=== PATIENT | male | born 1970 | race Caucasian/White ===

== ENCOUNTER 2017-07-29 05:53 | Emergency (ER) | payer MEDICAID ==
[2017-07-29 06:00] VITALS: BP 146/100
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
[2017-07-29] MEDS ORDERED: CHLORDIAZEPOXIDE 25MG PREPK#6 BTL TAKEHOME ONE (06:05)
== END 2017-07-29 06:19 | disposition home or self-care (01) ==
LOC: EDUNIT#
DX: F10.920 Alcohol use, unspecified with intoxication, uncomplicated (principal); I10 Essential (primary) hypertension; F17.200 Nicotine dependence, unspecified, uncomplicated

== ENCOUNTER 2017-07-30 18:01 | Emergency (ER) | payer MEDICAID ==
[2017-07-30] MEDS ORDERED: NS 1,000 ML IV ONE (18:56)
--- NOTE | 2017-07-30 18:56 | EDPHY ---
H & P Smoking Status: Current every day smoker Time Seen by Provider: 07/30/17 18:05 HPI/ROS: CHIEF COMPLAINT: Alcohol abuse HISTORY OF PRESENT ILLNESS: The patient is a 46-year-old male with a history of drug and alcohol abuse. The patient called police because he was drinking heavily. The patient states that he needed help because he drank a large amount of alcohol. He denies any drug use although he was attempting to buy cocaine prior to his ED visit yesterday. He has no recent trauma. The patient was without complaint at this time. No SI. REVIEW OF SYSTEMS: My complete review of systems is negative except as mentioned in the HPI. ( Mary Ramirez) Past Medical/Surgical History: Includes polysubstance abuse, alcoholism Past surgical history: Denies Social history: The patient drinks alcohol daily. (Mary Ramirez) Physical Exam: Vitals noted. Heart rate 125 GENERAL: Intoxicated appearing. No acute distress, alert. HEENT: Eyes normal to inspection, normal pharynx, no signs of dehydration. No trauma NECK: No thyromegaly, no lymphadenopathy, supple. RESPIRATORY: Clear to auscultation bilaterally, no rales, rhonchi or wheezing. CVS: Regular rate and rhythm, no rubs, murmurs, or gallops. ABDOMEN: Soft, nontender, nondistended, no organomegaly. BACK: Normal to inspection, no CVA tenderness. SKIN: Normal color, no rash, warm, dry. No pallor. EXTREMITIES: No pedal edema, no calf tenderness, no Homans sign or cords, no joint swelling. NEURO/PSYCH: Intoxicated appearing. Moves all extremities. No obvious cranial nerve deficit. (Mary Ramirez S) Constitutional: Initial Vital Signs Temperature (C) 36.5 C 07/30/17 18:03 Heart Rate 125 H 07/30/17 18:03 Respiratory Rate 18 07/30/17 18:03 Blood Pressure 139/102 H 07/30/17 18:03 O2 Sat (%) 96 07/30/17 18:03 O2 Delivery Mode Room Air Allergies/Adverse Reactions: No Known Allergies Allergy (Verified 12/28/15 07:55) Home Medications: Medication Instructions Recorded Losartan Potassium 07/16/15 Omeprazole 07/16/15 Sertraline HCl [Zoloft 50mg (*)] 50 mg PO DAILY 12/28/15 Medical Decision Making ED Course/Re-evaluation: In the emergency department I met the patient on arrival. I reviewed the patient's medical record from yesterday. Please are with the patient when he came to the emergency department. They state he is not welcome to go to [facility]. Patient's CBC is normal. Patient's chemistry panel is notable for an elevated sodium of 150. Creatinine is normal. Patient's alcohol is 293. Tylenol and aspirin is negative. 2000: Patient ambulated to the bathroom. 2100: Patient is signed out at change of shift to Dr. Roberson. (Mary Ramirez) Differential Diagnosis: My differential includes but is not limited to alcohol intoxication, drug abuse , closed-head injury, electrolyte abnormality, sugar abnormality, ACS, acute IA , dehydration (Mary Ramirez) Other Provider: Patient's care assumed by myself at [address] Ramirez. At 10 o'clock the patient was ambulatory with a steady gait. He is requesting medications for alcohol withdrawal but he is not tachycardic hypertensive, or tremors. He is not welcome at the [facility]. He was discharged to the streets. (Darby Roberson) - Data Points Laboratory Results: Laboratory Results 07/30/17 19:21 07/30/17 19:21 18 07/30/17 19:21 19:21 WBC 4.72 10^3/uL 10^3/uL (3.80-9.50) RBC 5.20 10^6/uL 10^6/uL (4.40-6.38) Hgb 16.8 g/dL g/dL (13.7-17.5) Hct 47.4 % % (40.0-51.0) MCV 91.2 fL fL (81.5-99.8) MCH 32.3 pg pg (27.9-34.1) MCHC 35.4 g/dL g/dL (32.4-36.7) RDW 14.3 % % (11.5-15.2) Plt Count 177 10^3/uL 10^3/uL (150-400) MPV 10.1 fL fL (8.7-11.7) Neut % (Auto) 43.6 % % (39.3-74.2) Lymph % (Auto) 42.4 % % (15.0-45.0) Forrest % (Auto) 10.8 % % (4.5-13.0) Eos % (Auto) 1.7 % % (0.6-7.6) Baso % (Auto) 1.1 % % (0.3-1.7) Nucleat RBC Rel Count 0.0 % % (0.0-0.2) Absolute Neuts (auto) 2.06 10^3/uL 10^3/uL (1.70-6.50) Absolute Lymphs (auto) 2.00 10^3/uL 10^3/uL (1.00-3.00) Absolute Monos (auto) 0.51 10^3/uL 10^3/uL (0.30-0.80) Absolute Eos (auto) 0.08 10^3/uL 10^3/uL (0.03-0.40) Absolute Basos (auto) 0.05 10^3/uL 10^3/uL (0.02-0.10) Absolute Nucleated RBC 0.00 10^3/uL 10^3/uL (0-0.01) Immature Gran % 0.4 % % (0.0-1.1) Immature Gran # 0.02 10^3/uL 10^3/uL (0.00-0.10) Sodium 150 mEq/L H mEq/L (135-145) Potassium 3.9 mEq/L mEq/L (3.3-5.0) Chloride 114 mEq/L H mEq/L (97-110) Carbon Dioxide 21 mEq/l L mEq/l (22-31) Anion Gap 15 mEq/L mEq/L (8-16) BUN 8 mg/dL mg/dL (7-23) Creatinine 1.0 mg/dL mg/dL (0.7-1.3) Estimated GFR > 60 Glucose 107 mg/dL H mg/dL (70-100) Calcium 9.1 mg/dL mg/dL (8.5-10.4) Salicylates < 1.0 mg/dL L mg/dL (2.0-20.0) Acetaminophen < 10 mcg/mL L mcg/mL (10-30) Ethyl Alcohol 293 mg/dL H mg/dL (0-10) Medications Given: Discontinued Medications Sodium Chloride (Ns) 1,000 mls @ 0 mls/hr IV ONCE ONE PRN Reason: Wide Open Stop: 07/30/17 18:57 Last Admin: 07/30/17 19:23 Dose: 1,000 mls Departure - Departure Disposition: [facility] Inpatient Acute Clinical Impression: Tachycardia Alcoholic intoxication Qualifiers: Complication of substance-induced condition: uncomplicated Qualified Code(s): F10.920 - Alcohol use, unspecified with intoxication, uncomplicated Condition: Good Instructions: Alcohol Intoxication (ED) Additional Instructions: Do not drink alcohol in excessive quantities If you are interested in treatment for alcohol withdrawal or alcohol abuse, please follow up at the [facility]. Referrals: NONE *PRIMARY CARE P,. [Primary Care Provider] - As per Instructions
[2017-07-30 19:36] LABS: PLATELET COUNT 177 10^3/uL (150-400)
[2017-07-30 23:19] VITALS: BP 122/79
== END 2017-07-30 23:19 | disposition home or self-care (01) ==
DX: F10.920 Alcohol use, unspecified with intoxication, uncomplicated (principal); R00.0 Tachycardia, unspecified
CPT/HCPCS: G0480

== ENCOUNTER 2017-07-31 01:33 | Emergency (ER) | payer MEDICAID ==
--- NOTE | 2017-07-31 02:46 | EDPHY ---
H & P Stated Complaint: ETOH BIB POLICE, UNABLE TO GO TO [facility] Time Seen by Provider: 07/31/17 01:41 HPI/ROS: HPI The patient presents with alcohol intoxication, brought in by the police and paramedics. Discharged from the emergency department just several hours ago. Apparently he walked out and drank more alcohol and then was found by police with slurring of his speech, inability to walk without assistance outside. He is transferred here for further care. Unfortunately, he is not welcome at the [facility] and was not sent there earlier today. The patient denies any overt complaints. He breathalyzer at 2:40 a.m... REVIEW OF SYSTEMS Constitutional: No fever, no chills. Eyes: No discharge. ENT: No sore throat. Cardiovascular: No chest pain, no palpitations. Respiratory: No cough, no shortness of breath. Gastrointestinal: No abdominal pain, no vomiting. Genitourinary: No hematuria. Musculoskeletal: No back pain. Skin: No rashes. Neurological: No headache. PMHx: GERD, hypertension, depression Soc Hx: Alcohol abuse, homelessness PHYSICAL General Appearance: Obviously intoxicated Eyes: Pupils equal and round no pallor or injection ENT, Mouth: Mucous membranes moist Respiratory: There are no retractions, lungs are clear to auscultation Cardiovascular: Regular rate and rhythm Gastrointestinal: Abdomen is soft and non-tender, no masses, bowel sounds normal Neurological: A&O, moves all extremities Skin: Warm and dry, no rashes Musculoskeletal: Neck is supple non tender Extremities: symmetrical, full range of motion Psychiatric: Patient is oriented X 3, there is no agitation Source: Patient, EMS, Old records Exam Limitations: Intoxication - Personal History Current Tetanus/Diphtheria Vaccine: Yes Current Tetanus Diphtheria and Acellular Pertussis (TDAP): Yes Tetanus Vaccine Date: 2014 - Medical/Surgical History Hx Asthma: No Hx Chronic Respiratory Disease: No Hx Diabetes: No Hx Cardiac Disease: No Hx Renal Disease: No Hx Cirrhosis: No Hx Alcoholism: Yes Hx HIV/AIDS: No Hx Splenectomy or Spleen Trauma: No Other PMH: HX: ETOH, depression, anxiety, GERD, hypertension - Social History Smoking Status: Current every day smoker Constitutional: Initial Vital Signs Temperature (C) 36.8 C 07/31/17 01:36 Heart Rate 93 07/31/17 01:36 Respiratory Rate 18 07/31/17 01:36 Blood Pressure 151/89 H 07/31/17 01:36 O2 Sat (%) 96 07/31/17 01:36 O2 Delivery Mode Room Air Allergies/Adverse Reactions: No Known Allergies Allergy (Verified 07/31/17 01:40) Home Medications: Medication Instructions Recorded Losartan Potassium 07/16/15 Omeprazole 07/16/15 Sertraline HCl [Zoloft 50mg (*)] 50 mg PO DAILY 12/28/15 Medical Decision Making Differential Diagnosis: 46-year-old male with 3rd ER visit in last 1 day for alcohol intoxication. He is brought in by paramedics after being discharged from the ER several hours ago for alcohol intoxication. It seems that he has left the ER, drink more alcohol, and now comes in again. Breathalyzer upon discharge was 150, now is in the 200s. We [facility] and [facility] can take him but not until the afternoon today. We will monitor him here and when he is sober he can be discharged. Departure - Departure Disposition: Home, Routine, Self-Care Clinical Impression: Alcoholic intoxication Qualifiers: Complication of substance-induced condition: with delirium Qualified Code(s): F10.921 - Alcohol use, unspecified with intoxication delirium Condition: Good Instructions: Alcohol Intoxication (ED) Referrals: NONE *PRIMARY CARE P,. [Primary Care Provider] - As per Instructions
[2017-07-31 07:08] VITALS: BP 150/77
== END 2017-07-31 07:07 | disposition home or self-care (01) ==
DX: F10.921 Alcohol use, unspecified with intoxication delirium (principal); I10 Essential (primary) hypertension; F17.200 Nicotine dependence, unspecified, uncomplicated

== ENCOUNTER 2017-07-31 16:58 | Emergency (ER) | payer MEDICAID ==
--- NOTE | 2017-07-31 18:13 | EDPHY ---
H & P Stated Complaint: ETOH Time Seen by Provider: 07/31/17 17:12 HPI/ROS: Chief complaint: Alcohol intoxication History of present illness: This is a 46 year-old male brought to the emergency department by police for alcohol intoxication. On my evaluation patient states he has been drinking alcohol today. Denies illness or injury. He has no complaints. Police brought him to the emergency department because he is not allowed to go to the [facility]. Review of systems: A 10 point review of systems was obtained and other than described above was normal - Personal History Current Tetanus Diphtheria and Acellular Pertussis (TDAP): Yes Tetanus Vaccine Date: 2014 - Medical/Surgical History Hx Asthma: No Hx Chronic Respiratory Disease: No Hx Diabetes: No Hx Cardiac Disease: No Hx Renal Disease: No Hx Cirrhosis: No Hx Alcoholism: Yes Hx HIV/AIDS: No Hx Splenectomy or Spleen Trauma: No Other PMH: HX: ETOH, depression, anxiety, GERD, hypertension - Social History Smoking Status: Current every day smoker - Physical Exam Exam: General Appearance: Alert, nontoxic. Eyes: Pupils equal and round no pallor or injection. ENT, Mouth: Mucous membranes moist. Respiratory: There are no retractions, lungs are clear to auscultation. Cardiovascular: Regular rate and rhythm. Gastrointestinal: Abdomen is soft and non tender, no masses, bowel sounds normal. Neurological: Alert and oriented x4. Strength and sensation intact and symmetrical. Skin: Warm and dry, no rashes. Musculoskeletal: Neck is supple non tender. Extremities are symmetrical, full range of motion. Psychiatric: Patient is easily conversant. No agitation. Constitutional: Initial Vital Signs Temperature (C) 37 C 07/31/17 17:02 Heart Rate 110 H 07/31/17 17:02 Respiratory Rate 18 07/31/17 17:02 Blood Pressure 156/102 H 07/31/17 17:02 O2 Sat (%) 93 07/31/17 17:02 O2 Delivery Mode Room Air Allergies/Adverse Reactions: No Known Allergies Allergy (Verified 07/31/17 01:40) Home Medications: Medication Instructions Recorded Losartan Potassium 07/16/15 Omeprazole 07/16/15 Sertraline HCl [Zoloft 50mg (*)] 50 mg PO DAILY 12/28/15 Medical Decision Making ED Course/Re-evaluation: Patient seen under the supervision of my primary supervising physician Dr. Carol Solorzano. Patient presents with the police intoxicated. He is observed for a number of hours in the emergency room. He is speaking to me well. He has no complaints. He is ambulating without difficulty. He will be discharged. Return precautions were given. Differential Diagnosis: Included but not limited to alcohol intoxication, alcohol withdrawal, polysubstance abuse Departure - Departure Disposition: Home, Routine, Self-Care Clinical Impression: Alcoholic intoxication Qualifiers: Complication of substance-induced condition: uncomplicated Qualified Code(s): F10.920 - Alcohol use, unspecified with intoxication, uncomplicated Condition: Good Instructions: Alcohol Intoxication (ED) Additional Instructions: Follow-up with the primary care doctor this week for recheck If symptoms worsen or new symptoms develop return to the emergency room for recheck Referrals: NONE *PRIMARY CARE P,. [Primary Care Provider] - As per Instructions
[2017-07-31 18:21] VITALS: BP 135/90
== END 2017-07-31 18:44 | disposition home or self-care (01) ==
DX: F10.920 Alcohol use, unspecified with intoxication, uncomplicated (principal); I10 Essential (primary) hypertension; F17.200 Nicotine dependence, unspecified, uncomplicated

== ENCOUNTER 2017-08-04 18:42 | Emergency (ER) | payer MEDICAID ==
--- NOTE | 2017-08-04 18:45 | EDPHY ---
H & P - Personal History Tetanus Vaccine Date: 2014 - Medical/Surgical History Hx Asthma: No Hx Chronic Respiratory Disease: No Hx Diabetes: No Hx Cardiac Disease: No Hx Renal Disease: No Hx Cirrhosis: No Hx Alcoholism: Yes Hx HIV/AIDS: No Hx Splenectomy or Spleen Trauma: No Other PMH: HX: ETOH, depression, anxiety, GERD, hypertension - Social History Smoking Status: Current every day smoker Time Seen by Provider: 08/04/17 18:44 Constitutional: Initial Vital Signs Temperature (C) 36.8 C 08/04/17 18:42 Heart Rate 115 H 08/04/17 18:42 Respiratory Rate 16 08/04/17 18:42 Blood Pressure 122/102 H 08/04/17 18:42 O2 Sat (%) 91 L 08/04/17 18:42 O2 Delivery Mode Room Air Allergies/Adverse Reactions: No Known Allergies Allergy (Verified 07/31/17 01:40) Home Medications: Medication Instructions Recorded Losartan Potassium 07/16/15 Omeprazole 07/16/15 Sertraline HCl [Zoloft 50mg (*)] 50 mg PO DAILY 12/28/15 Medical Decision Making ED Course/Re-evaluation: CHIEF COMPLAINT: Psychiatric evaluation HISTORY OF PRESENT ILLNESS: The patient is a 46 y/o male well-known to this ED with a history of alcoholism and suicidal ideation complaining of intoxication and suicidal ideation. He reports drinking excessively tonight and now feels like he may harm himself. He denies taking anything or doing anything to harm himself. He denies any other associated symptoms. REVIEW OF SYSTEMS: A 10 point review of systems was performed and is negative with the exception of the elements mentioned in the history of present illness. PHYSICAL EXAM: General Appearance: Alert, well hydrated, intoxicated. Head: Atraumatic without scalp tenderness or obvious injury Eyes: Pupils equal, round, reactive to light and accommodation, EOMI, no trauma , no injection. Ears: Clear bilaterally, no perforation, normal landmarks Nose: Atraumatic, no rhinorrhea, clear. Throat: There is no erythema or exudates, no lesions, normal tonsils, mucus membranes moist. Neck: Supple, nontender, no lymphadenopathy. Respiratory: No retractions, no distress, no wheezes, and no accessory muscle use. Cardiovascular: Regular rate and rhythm, no murmurs, rubs, or gallops. Gastrointestinal: Abdomen is soft, nontender, non-distended, no masses, no rebound, no guarding, no peritoneal signs. Musculoskeletal: Normal active ROM of all extremities, atraumatic. Neurological: Alert, appropriate, and interactive. Skin: No rashes, good turgor, no nodules on palpation. Past medical history: Alcohol abuse, suicidal ideation while intoxicated Past surgical history: Denies Family history: Non-contributory Social history: Transient, alcohol use, Medicaid patient DIFFERENTIAL DIAGNOSIS: The differential diagnosis for the patient's depression included but was not limited to functional and major depression, situational depression, medication side effect, drugs, and alcohol abuse. MEDICAL DECISION MAKING: Patient is in no acute distress and is hemodynamically stable. We are awaiting psychiatric team's evaluation. Patient has known history of psychiatric disorders and is here for evaluation. (Alexander Cifuentes) 0700: Patient has been sleeping. He is now sober. Has been getting Ativan. Patient on M1 hold. Suicidal ideation. Patient needs mental evaluation signed over to Dr. Markham 7am. (Markus Saunders) 700: The patient is signed out to me at change of shift by Dr. Saunders. Patient was stable during his stay. Patient was a good evaluated by Dr. Castro. She recommended the hold be lifted. Patient was given warnings prior to leaving. (Mary Ramirez) - Data Points Laboratory Results: Laboratory Results 08/04/17 18:50 08/04/17 18:50 Medications Given: Discontinued Medications Famotidine (Pepcid) 20 mg PO EDNOW ONE Stop: 08/05/17 11:32 Last Admin: 08/05/17 11:52 Dose: 20 mg Lorazepam (Ativan) 1 mg PO EDNOW ONE Stop: 08/05/17 05:46 Last Admin: 08/05/17 05:53 Dose: 1 mg Departure - Departure Disposition: Home, Routine, Self-Care Clinical Impression: Suicidal ideation Alcoholic intoxication Qualifiers: Complication of substance-induced condition: uncomplicated Qualified Code(s): F10.920 - Alcohol use, unspecified with intoxication, uncomplicated Condition: Good Instructions: Abuse of Alcohol (ED) Additional Instructions: Return with thoughts of wanting to harm yourself Referrals: [facility],. [Clinic] - As per Instructions Report Scribed for: Alexander Cifuentes Report Scribed by: Ines Bello Date of Report: 08/04/17 Time of Report: 20:17
[2017-08-04 19:09] LABS: PLATELET COUNT 215 10^3/uL (150-400)
[2017-08-05] MEDS ORDERED: LORazepam 1 MG TAB PO ONE (05:45)
[2017-08-05 09:15] VITALS: BP 139/95
[2017-08-05] MEDS ORDERED: FAMOTIDINE 20 MG TAB ONE (11:29)
[2017-08-05] MEDS ORDERED: FAMOTIDINE 20 MG TAB PO ONE (11:31)
== END 2017-08-05 13:10 | disposition home or self-care (01) ==
LOC: EEVIPCON 18:42
DX: R45.851 Suicidal ideations (principal); F10.920 Alcohol use, unspecified with intoxication, uncomplicated; I10 Essential (primary) hypertension; F17.200 Nicotine dependence, unspecified, uncomplicated
CPT/HCPCS: 80305; G0480

== ENCOUNTER 2018-03-23 11:01 | Emergency (ER) | payer MEDICAID ==
[2018-03-23] MEDS ORDERED: chlordiazePOXIDE 25 MG CAP PO ONE (11:34)
[2018-03-23] MEDS ORDERED: NS 1,000 ML IV ONE (11:34)
[2018-03-23] MEDS ORDERED: CHLORDIAZEPOXIDE 25MG PREPK#6 BTL TAKEHOME ONE (11:37)
--- NOTE | 2018-03-23 11:37 | EDPHY ---
H & P Stated Complaint: wants help with etoh detox Time Seen by Provider: 03/23/18 11:29 HPI/ROS: Chief Complaint: Alcohol withdrawal HPI: 47-year-old alcoholic who is been on a [place] for the last 10 days. Last drink was last night. Has a history of alcohol withdrawal in the past. Had some lightheadedness and nausea this morning. Is presenting asking for help with detoxing. Patient states that he is not [facility] the [facility]. Denies any fevers or chills. No nausea or vomiting. No cough. No history of alcohol withdrawal seizures in the past. He is not hallucinating. ROS: 10 systems were reviewed and were negative except those elements noted in the HPI. PMH: Alcoholism, hypertension, hyperlipidemia Social History: No smoking, occasional heavy alcohol, occasional Family History: non-contributory Physical Exam: Gen: Awake, Alert, mildly tremulous HEENT: Nose: no rhinorrhea Eyes: PERRLA, EOMI Mouth: Moist mucosa Neck: Supple, no JVD Chest: nontender, lungs clear to auscultation Heart: S1, S2 normal, no murmur Abd: Soft, non-tender, no guarding Back: no CVA tenderness, no midline tenderness Ext: no edema, non-tender Skin: no rash Neuro: CN II-XII intact, Sensation grossly intact, Strength 5/5 in bilateral upper and lower extremities - Personal History Current Tetanus Diphtheria and Acellular Pertussis (TDAP): Yes Tetanus Vaccine Date: 2014 - Medical/Surgical History Hx Asthma: No Hx Chronic Respiratory Disease: No Hx Diabetes: No Hx Cardiac Disease: No Hx Renal Disease: No Hx Cirrhosis: No Hx Alcoholism: Yes Hx HIV/AIDS: No Hx Splenectomy or Spleen Trauma: No Other PMH: HX: ETOH, depression, anxiety, GERD, hypertension - Social History Smoking Status: Current every day smoker Constitutional: Initial Vital Signs Temperature (C) 36.9 C 03/23/18 11:10 Heart Rate 92 03/23/18 11:10 Respiratory Rate 18 03/23/18 11:10 Blood Pressure 166/104 H 03/23/18 11:10 O2 Sat (%) 97 03/23/18 11:10 O2 Delivery Mode Room Air Allergies/Adverse Reactions: No Known Allergies Allergy (Verified 03/23/18 11:09) Home Medications: Medication Instructions Recorded NK [No Known Home Meds] 03/23/18 Medical Decision Making ED Course/Re-evaluation: 47-year-old male complaining of alcohol withdrawal. He is requesting medicine to help with his withdrawal. I have suggested that he go to the [facility]. Patient is refusing. Case management has been involved. I have also after reach out to [facility]. He is refusing this as well. He just wants me to given some medicine that he can detox alone at home. I told him this is not weeks diaper for him and controlled situation. Patient is refusing. Patient left against medical advice. - Data Points Laboratory Results: Laboratory Results 03/23/18 11:04 03/23/18 11:04 03/23/18 03/23/18 11:04 11:04 WBC 5.66 10^3/uL 10^3/uL (3.80-9.50) RBC 5.37 10^6/uL 10^6/uL (4.40-6.38) Hgb 17.6 g/dL H g/dL (13.7-17.5) Hct 47.5 % % (40.0-51.0) MCV 88.5 fL fL (81.5-99.8) MCH 32.8 pg pg (27.9-34.1) MCHC 37.1 g/dL H g/dL (32.4-36.7) RDW 11.9 % % (11.5-15.2) Plt Count 176 10^3/uL 10^3/uL (150-400) MPV 10.0 fL fL (8.7-11.7) Neut % (Auto) 51.4 % % (39.3-74.2) Lymph % (Auto) 32.3 % % (15.0-45.0) Island % (Auto) 14.0 % H % (4.5-13.0) Eos % (Auto) 1.2 % % (0.6-7.6) Baso % (Auto) 0.9 % % (0.3-1.7) Nucleat RBC Rel Count 0.0 % % (0.0-0.2) Absolute Neuts (auto) 2.91 10^3/uL 10^3/uL (1.70-6.50) Absolute Lymphs (auto) 1.83 10^3/uL 10^3/uL (1.00-3.00) Absolute Monos (auto) 0.79 10^3/uL 10^3/uL (0.30-0.80) Absolute Eos (auto) 0.07 10^3/uL 10^3/uL (0.03-0.40) Absolute Basos (auto) 0.05 10^3/uL 10^3/uL (0.02-0.10) Absolute Nucleated RBC 0.00 10^3/uL 10^3/uL (0-0.01) Immature Gran % 0.2 % % (0.0-1.1) Immature Gran # 0.01 10^3/uL 10^3/uL (0.00-0.10) Sodium 139 mEq/L mEq/L (135-145) Potassium 3.9 mEq/L mEq/L (3.5-5.2) Chloride 104 mEq/L mEq/L (97-110) Carbon Dioxide 21 mEq/l L mEq/l (22-31) Anion Gap 14 mEq/L mEq/L (6-14) BUN 8 mg/dL mg/dL (7-23) Creatinine 0.8 mg/dL mg/dL (0.7-1.3) Estimated GFR > 60 Glucose 106 mg/dL H mg/dL (70-100) Calcium 9.9 mg/dL mg/dL (8.5-10.4) Medications Given: Discontinued Medications Chlordiazepoxide (Librium 25 Mg Prepack#6) 1 btl TAKEHOME EDNOW ONE Stop: 03/23/18 11:38 Last Admin: 03/23/18 12:30 Dose: Not Given Chlordiazepoxide HCl (Librium) 25 mg PO EDNOW ONE Stop: 03/23/18 11:35 Last Admin: 03/23/18 11:38 Dose: 25 mg Sodium Chloride (Ns) 1,000 mls @ 0 mls/hr IV ONCE ONE; Wide Open PRN Reason: Protocol Stop: 03/23/18 11:35 Last Admin: 03/23/18 11:39 Dose: 1,000 mls Departure - Departure Disposition: Against Medical Advice Clinical Impression: Alcohol withdrawal Condition: Good Instructions: Alcohol Withdrawal (ED) Referrals: NONE *PRIMARY CARE P,. [Primary Care Provider] - As per Instructions
[2018-03-23 11:41] LABS: PLATELET COUNT 176 10^3/uL (150-400)
[2018-03-23 12:36] VITALS: BP 162/102
--- NOTE | 2018-03-23 16:28 | ASMTCMCOM ---
CM Note CM Note Notes: Pt presented to the ED via EMS for ETOH withdrawal symptoms. Pt states he is banned from [facility]. This CM called Detox and spoke w/Martha; she states pt is allowed there. This CM relayed this to the pt and he says that he doesn't want to go there anymore. Pt provided a resource list for substance abuse treatment options that take Medicaid, [facility], etc. Pt states he is seen at [facility]. Pt requested to be discharged home to his apartment. CM available for further assistance if needed. Date Signed: 03/23/2018 04:27 PM Electronically Signed By:Jacinta Saab RN
== END 2018-03-23 12:36 | disposition left against medical advice (07) ==
LOC: EDUNIT#
DX: F10.230 Alcohol dependence with withdrawal, uncomplicated (principal)

== ENCOUNTER 2018-06-05 18:35 | Emergency (ER) | payer MEDICAID ==
--- NOTE | 2018-06-05 18:46 | EDPHY ---
H & P Time Seen by Provider: 06/05/18 18:38 HPI/ROS: CHIEF COMPLAINT: Alcohol intoxication Limitations: Alcohol intoxication, unable to provide any history HISTORY OF PRESENT ILLNESS: 47-year-old male presents with alcohol intoxication. He called 911 this evening with a concern for alcohol intoxication. On EMS arrival, there were several empty bottles of vodka around him. His speech was slurred and he appeared clinically intoxicated. Did not appear that he fell. The patient is unable to provide any clinical history. He tells me that I would not understand. REVIEW OF SYSTEMS: complete 10 point ROS reviewed and is negative except for the noted elements in the HPI - Personal History Tetanus Vaccine Date: 2014 - Medical/Surgical History Hx Asthma: No Hx Chronic Respiratory Disease: No Hx Diabetes: No Hx Cardiac Disease: No Hx Renal Disease: No Hx Cirrhosis: No Hx Alcoholism: Yes Hx HIV/AIDS: No Hx Splenectomy or Spleen Trauma: No Other PMH: HX: ETOH, depression, anxiety, GERD, hypertension - Social History Smoking Status: Current every day smoker Alcohol Use: Heavy - Physical Exam Exam: General Appearance: Lethargic, slurred speech, agitated at times Eyes: Pupils dilated, horizontal nystagmus ENT, Mouth: Mucous membranes moist, no trauma Neck: normal inspection Respiratory: Lungs are clear to auscultation Cardiovascular: Regular rate and rhythm Gastrointestinal: Abdomen is soft and nontender Neurological: Lethargic, moves all extremities, non-focal exam Skin: Warm and dry, no visible wounds Extremities: normal inspection Psychiatric: Fluctuating affect Constitutional: Initial Vital Signs Temperature (C) 36.6 C 06/05/18 19:00 Heart Rate 81 06/05/18 19:00 Respiratory Rate 16 06/05/18 19:00 Blood Pressure 123/83 H 06/05/18 19:00 O2 Sat (%) 96 06/05/18 19:00 O2 Delivery Mode Room Air Allergies/Adverse Reactions: No Known Allergies Allergy (Verified 03/23/18 11:09) Home Medications: Medication Instructions Recorded NK [No Known Home Meds] 03/23/18 Medical Decision Making ED Course/Re-evaluation: This pt presents with alcohol intoxication. No signs of illness or trauma. Pt observed in ED. Able to walk with a steady gait on discharge. Transported to [facility]. - Data Points Medications Given: Discontinued Medications Chlordiazepoxide (Librium 25 Mg Prepack#6) 1 btl TAKEHOME EDNOW ONE Stop: 06/05/18 21:48 Last Admin: 06/05/18 22:13 Dose: 1 btl Departure - Departure Disposition: Home, Routine, Self-Care Clinical Impression: Alcoholic intoxication Qualifiers: Complication of substance-induced condition: uncomplicated Qualified Code(s): F10.920 - Alcohol use, unspecified with intoxication, uncomplicated Condition: Fair Instructions: Chlordiazepoxide/Clidinium (By mouth), Alcohol Intoxication (ED) Referrals: Jaxon Hernandez MD [Medical Doctor] - As per Instructions [facility] [Outside] - As per Instructions
[2018-06-05] MEDS ORDERED: CHLORDIAZEPOXIDE 25MG PREPK#6 BTL TAKEHOME ONE (21:47)
[2018-06-05 22:17] VITALS: BP 143/75
== END 2018-06-05 22:17 | disposition home or self-care (01) ==
LOC: EDUNIT#
DX: F10.920 Alcohol use, unspecified with intoxication, uncomplicated (principal)

== ENCOUNTER 2018-08-12 15:20 | Emergency (ER) | payer MEDICAID | END 2018-08-12 16:05 | disposition home or self-care (01) ==